=== PATIENT | female | born 1930 | race Caucasian/White ===

== ENCOUNTER → 2016-09-21 | Outpatient (CLI) | payer MEDICARE ==
[2016-09-21 08:59] LABS: MEAN CORPUSCULAR HEMOGLOBIN 30.6 PG (26.0-34.0); MEAN CORPUSCULAR HGB CONC 33.6 g/dL (31.0-37.0); MEAN CORPUSCULAR VOLUME 91 FL (80-100); MEAN PLATELET VOLUME 11.9 FL (6.0-9.5); PLATELET COUNT 112 10^3uL (150-450); WHITE BLOOD COUNT 10.17 10^3uL (4.0-11.0)
[2016-09-21 09:15] LABS: BAND NEUTROPHILS % 1 % (0-6); EOSINOPHILS % 0 % (0-4); LYMPHOCYTES # 1.6 #; MONOCYTES # 2.3 #; MONOCYTES % 23 % (3-11); RBC MORPH NORMAL (NORMAL); SEGMENTED NEUTROPHILS % 60 % (51-67); TOTAL CELLS COUNTED 100
== END ==
LOC: LAB 08:46
PROVIDERS: ATTEND Internal Medicine Hematology & Oncology
DX: D69.6 Thrombocytopenia, unspecified (principal); D72.821 Monocytosis (symptomatic)
CPT/HCPCS: 36415; 85025

== ENCOUNTER → 2016-10-19 | Outpatient (CLI) | payer MEDICARE ==
[2016-10-19 08:36] LABS: MEAN CORPUSCULAR HGB CONC 34.4 g/dL (31.0-37.0); MEAN CORPUSCULAR VOLUME 92 FL (80-100); MEAN PLATELET VOLUME 12.4 FL (6.0-9.5); PLATELET COUNT 99 10^3uL (150-450); WHITE BLOOD COUNT 11.11 10^3uL (4.0-11.0)
[2016-10-19 08:37] LABS: MEAN CORPUSCULAR HEMOGLOBIN 31.5 PG (26.0-34.0)
[2016-10-19 08:39] LABS: BAND NEUTROPHILS % 1 % (0-6); EOSINOPHILS % 0 % (0-4); LYMPHOCYTES # 1.8 #; MONOCYTES # 2.8 #; MONOCYTES % 25 % (3-11); RBC MORPH NORMAL (NORMAL); SEGMENTED NEUTROPHILS % 57 % (51-67); TOTAL CELLS COUNTED 100
== END ==
LOC: LAB 08:16
PROVIDERS: ATTEND Internal Medicine Hematology & Oncology
DX: D72.821 Monocytosis (symptomatic) (principal); D69.6 Thrombocytopenia, unspecified
CPT/HCPCS: 36415; 85025

== ENCOUNTER → 2016-11-15 | Outpatient (CLI) | payer MEDICARE ==
[2016-11-15 08:11] LABS: MEAN CORPUSCULAR HGB CONC 34.3 g/dL (31.0-37.0); MEAN CORPUSCULAR VOLUME 92 FL (80-100); PLATELET COUNT 90 10^3uL (150-450); WHITE BLOOD COUNT 9.31 10^3uL (4.0-11.0)
[2016-11-15 08:26] LABS: MEAN CORPUSCULAR HEMOGLOBIN 31.5 PG (26.0-34.0)
[2016-11-15 08:36] LABS: BAND NEUTROPHILS % 3 % (0-6); EOSINOPHILS % 0 % (0-4); LYMPHOCYTES # 2.5 #; MONOCYTES # 2.4 #; MONOCYTES % 27 % (3-11); RBC MORPH NORMAL (NORMAL); SEGMENTED NEUTROPHILS % 43 % (51-67); TOTAL CELLS COUNTED 100
== END ==
LOC: LAB 08:01
PROVIDERS: ATTEND Internal Medicine Hematology & Oncology
DX: D72.821 Monocytosis (symptomatic) (principal); D69.6 Thrombocytopenia, unspecified
CPT/HCPCS: 36415; 85025

== ENCOUNTER → 2017-01-24 | Outpatient (CLI) | payer MEDICARE ==
[2017-01-24 08:10] LABS: MEAN CORPUSCULAR HEMOGLOBIN 30.4 PG (26.0-34.0); MEAN CORPUSCULAR HGB CONC 32.8 g/dL (31.0-37.0); MEAN CORPUSCULAR VOLUME 93 FL (80-100); MEAN PLATELET VOLUME 12.1 FL (6.0-9.5); PLATELET COUNT 92 10^3uL (150-450); WHITE BLOOD COUNT 8.97 10^3uL (4.0-11.0)
[2017-01-24 08:42] LABS: BAND NEUTROPHILS % 0 % (0-6); EOSINOPHILS % 3 % (0-4); LYMPHOCYTES # 2.2 #; MONOCYTES % 0 % (3-11); RBC MORPH NORMAL (NORMAL); SEGMENTED NEUTROPHILS % 72 % (51-67); TOTAL CELLS COUNTED 100
== END ==
LOC: LAB 07:59
PROVIDERS: ATTEND Internal Medicine Hematology & Oncology
DX: D72.821 Monocytosis (symptomatic) (principal); D69.6 Thrombocytopenia, unspecified
CPT/HCPCS: 36415; 85007; 85025